=== PATIENT | female | born 1970 | race Hispanic/Latino ===

== ENCOUNTER 2016-10-27 07:36 | Emergency (ER) | payer OTHER ==
[~2016-10-27] VITALS: Ht 160 cm; Wt 123.4 kg
[~2016-10-27 07:36] MED LIST: ADVIL MIGRAINE200 MG PO; CIPRO500 MG PO; CIPRO750 MG PO; FLEXERIL10 MG PO; FLOVENT DISKUS1 DIS2 IH; HYCODAN SYRUP480 ML PO; NAPROSYN500 MG PO; NAPROXEN500 MG PO; NORCO 5/3251 TABLET PO; PREDNISONE20 MG PO; PROAIR HFA8.5 GM IH; TAMIFLU75 MG PO; TRAMADOL HCL50 MG PO; ZITHROMAX250 MG PO
[2016-10-27] MEDS ORDERED: FLEXERIL10 MG PO (07:59)
[2016-10-27] MEDS ORDERED: TYLENOL WITH C1 EACH PO (07:59)
[2016-10-27 08:15] VITALS: BP 132/60
== END 2016-10-27 08:17 | disposition home or self-care (01) ==
LOC: EME 07:36
DX: M54.12 Radiculopathy, cervical region (principal); G47.30 Sleep apnea, unspecified
CPT/HCPCS: 99281; 99284

== ENCOUNTER 2016-11-21 05:23 | Emergency (ER) | payer OTHER ==
[~2016-11-21] VITALS: Ht 157.5 cm; Wt 119.9 kg
[~2016-11-21 05:23] MED LIST changes: +TYLENOL WITH C1 EACH PO
[2016-11-21 06:25] LABS: HEMATOCRIT 37.8 % (36.0-46.0); MCHC 32.3 G/DL (30.0-36.0); MCV 83.6 FL (83-99); MEAN PLAT.VOLUME 9.7 uM^3 (9.5-12.4); PLATELET COUNT 346 K/uL (156-360); RBC DIS.WIDTH-CV 14.5 % (11.8-14.6); RED BLOOD COUNT 4.52 M/uL (3.80-5.20); WHITE BLOOD COUNT 8.1 K/uL (4.1-10.2)
[2016-11-21 06:38] LABS: CHLORIDE 108 mEq/L (99-109); POTASSIUM 3.8 mEq/L (3.7-5.4); SODIUM 139 mEq/L (136-147)
[2016-11-21 06:40] LABS: GLUCOSE 104 mg/dL (70-99)
[2016-11-21 06:41] LABS: ANION GAP 8 MEQ/L (2-14)
[2016-11-21 06:44] LABS: GFR ESTIMATE (CALCULATED) 57 mL/min/
[2016-11-21 06:45] LABS: UREA NITROGEN (BUN) 23 mg/dL (9-23)
[2016-11-21 06:48] LABS: TROP-I INTERPRETATION NEGATIVE; TROPONIN-I < 0.01 ng/mL (0.0-0.30)
[2016-11-21] MEDS ORDERED: NORCO 5/3251 TABLET PO (07:01)
[2016-11-21] MEDS ORDERED: FLEXERIL10 MG PO (07:01)
[2016-11-21 07:55] VITALS: BP 137/74
== END 2016-11-21 07:57 | disposition home or self-care (01) ==
LOC: EME 05:23
PROVIDERS: Emergency Medicine
DX: S46.911A Strain of unspecified muscle, fascia and tendon at shoulder and upper arm level, right arm, initial encounter (principal); M54.2 Cervicalgia; X58.XXXA Exposure to other specified factors, initial encounter; Y93.E1 Activity, personal bathing and showering
CPT/HCPCS: 71020; 80048; 84484; 85027; 93005; 99281; 99284

== ENCOUNTER 2017-04-13 16:49 | Emergency (ER) | payer OTHER ==
[~2017-04-13] VITALS: Ht 157.5 cm; Wt 116.9 kg
[2017-04-13 17:46] LABS: HEMATOCRIT 39.7 % (36.0-46.0); MCH 27.4 PG (29.0-34.0); MCHC 32.5 G/DL (30.0-36.0); MCV 84.5 FL (83-99); MEAN PLAT.VOLUME 9.7 uM^3 (9.5-12.4); PLATELET COUNT 369 K/uL (156-360); RBC DIS.WIDTH-CV 13.8 % (11.8-14.6); RBC DIS.WIDTH-SD 42.9 % (39-53); WHITE BLOOD COUNT 9.6 K/uL (4.1-10.2)
[2017-04-13 17:55] LABS: CHLORIDE 105 mEq/L (99-109); POTASSIUM 4.2 mEq/L (3.7-5.4); SODIUM 138 mEq/L (136-147)
[2017-04-13 17:57] LABS: GLUCOSE 100 mg/dL (70-99)
[2017-04-13 17:58] LABS: ANION GAP 7 MEQ/L (2-14)
[2017-04-13 17:59] LABS: TOTAL BILIRUBIN 0.4 mg/dL (0.0-1.0)
[2017-04-13 18:01] LABS: ALKALINE PHOSPHATASE 99 IU/L (3-129); GFR ESTIMATE (CALCULATED) 51 mL/min/
[2017-04-13 18:02] LABS: UREA NITROGEN (BUN) 20 mg/dL (9-23)
[2017-04-13 18:04] LABS: LIPASE 40 U/L (1.0-51.0)
[2017-04-13 18:11] LABS: ADD MIUA? YES; BILIRUBIN NEGATIVE; BLOOD LARGE; COLOR YELLOW ((YELLOW)); GLUCOSE (STRIP) NEGATIVE; KETONES NEGATIVE; LEUKOCYTES NEGATIVE; NITRITE NEGATIVE; PROTEIN (STRIP) NEGATIVE; SPECIFIC GRAVITY 1.021 (1.000-1.030); UROBILINOGEN 0.2 MG/DL (0.2-1.0)
[2017-04-13 18:15] LABS: BACTERIA NONE SEEN /HPF; EPITHELIAL CELLS RARE /HPF; MUCUS TRACE /LPF; RED BLOOD CELLS TNTC /HPF (0-5); WHITE BLOOD CELLS 0-5 /HPF (0-5)
[2017-04-13] MEDS ORDERED: PROVERA,CYCRIN10 MG PO (22:06)
[2017-04-13] MEDS ORDERED: ULTRACET1 TABLET PO (22:06)
[2017-04-13] MEDS ORDERED: INDOCIN50 MG PO (22:06)
[2017-04-13 22:32] VITALS: BP 131/78
== END 2017-04-13 22:34 | disposition home or self-care (01) ==
LOC: EME 16:49
PROVIDERS: Physician Assistant
DX: N93.8 Other specified abnormal uterine and vaginal bleeding (principal); D25.9 Leiomyoma of uterus, unspecified; N28.1 Cyst of kidney, acquired; K42.9 Umbilical hernia without obstruction or gangrene; Z90.49 Acquired absence of other specified parts of digestive tract
CPT/HCPCS: 74176; 76856; 80053; 81003; 83690; 85027; 99281; 99284; J3010

== ENCOUNTER 2017-07-09 04:14 | Emergency (ER) | payer OTHER ==
[~2017-07-09] VITALS: Ht 157.5 cm; Wt 116.7 kg
[~2017-07-09 04:14] MED LIST changes: +INDOCIN50 MG PO; +PROVERA,CYCRIN10 MG PO; +ULTRACET1 TABLET PO
[2017-07-09 04:19] VITALS: BP 150/89
== END 2017-07-09 05:17 | disposition left against medical advice (07) ==
LOC: EME 04:14
DX: R68.83 Chills (without fever) (principal); M54.6 Pain in thoracic spine; Z53.21 Procedure and treatment not carried out due to patient leaving prior to being seen by health care provider